=== PATIENT | female | born 1935 | race Caucasian/White ===

== ENCOUNTER 2018-03-07 17:58 | Observation (INO) ==
--- NOTE | 2018-03-07 18:31 | Emergency Department Note ---
Disposition Clinical Impression: Healthcare-associated pneumonia, Hypoxia Sepsis Qualifiers: Sepsis type: sepsis due to unspecified organism Qualified Code(s): A41.9 - Sepsis, unspecified organism Disposition: Admitted As Inpatient Condition: Good Time of Disposition: 20:29 SOB HPI - General Chief Complaint: ED Shortness of Breath/Dyspnea Stated Complaint: JONATAN Time Seen by Provider: 03/07/18 18:13 Source: patient, family, EMS Mode of arrival: EMS Limitations: no limitations Nursing Notes Reviewed: Yes Vital Signs Reviewed: Yes - History of Present Illness 82-year-old female history of hypertension and diabetes presents an emergency department via EMS for difficulty breathing. Symptoms started earlier this afternoon. She states she felt some chills and try to cover up was unable to get better. She started feeling short of breath and had increase work of breathing. She denies any cough congestion. Denies any chest pain. She was very shaky and so daughter called EMS. They place oxygen on her and she felt better. She is currently 95% on to liter nasal cannula and does not have any home oxygen supplementation. No history of lung disease. Recent hospitalization for abdominal pain. History of pneumonia. Denies history of congestive heart failure. She states it does feel worse when she lays down flat. No swelling or erythema of her legs. No history of cardiac ischemic disease. No history of known cancer, blood clot history, hemoptysis or hormone use. Patient has a known systolic murmur which she describes as a whole in his heart seen on ultrasound. Pt Subjective Complaint: shortness of breath - Related Data Home Medications Medication Instructions Recorded Confirmed Aspirin Enteric Coated [Aspirin EC] 325 mg PO DAILY 03/07/18 03/07/18 Atorvastatin Calcium [Lipitor] 20 mg PO HS 03/07/18 03/07/18 Citalopram Hydrobromide 20 mg PO DAILY 03/07/18 03/07/18 [Citalopram HBr] Cyanocobalamin (B-12) [Vitamin B12] 1,000 mcg IM QMONTH 03/07/18 03/07/18 Gabapentin [Neurontin] 600 mg PO DAILY 03/07/18 03/07/18 Glimepiride [Amaryl] 4 mg PO BID 03/07/18 03/07/18 Insulin Glargine,Hum.rec.anlog 20 units SQ 1200 03/07/18 03/07/18 [[place] Solostar] Levothyroxine Sodium [Levoxyl] 112 mcg PO QAM 03/07/18 03/07/18 Linagliptin [Tradjenta] 5 mg PO DAILY 03/07/18 03/07/18 Loratadine [Allergy Relief] 10 mg PO DAILY 03/07/18 03/07/18 Losartan Potassium [Cozaar] 100 mg PO DAILY 03/07/18 03/07/18 Metoprolol Succinate [Toprol Xl] 50 mg PO DAILY 03/07/18 03/07/18 hydroCHLOROthiazide 12.5 mg PO DAILY 03/07/18 03/07/18 [Hydrochlorothiazide] raNITIdine HCl [Ranitidine HCl] 300 mg PO DAILY 03/07/18 03/07/18 Allergies Allergy/AdvReac Type Severity Reaction Status Date / Time Penicillins AdvReac Rash Verified 03/07/18 20:30 All systems ED: reviewed and negative except as stated. Review of Systems: As Per HPI Constitutional: Reports: fever, chills. Denies: weakness ENT ED: Denies: congestion Cardiovascular: Denies: chest pain Respiratory: Reports: dyspnea. Denies: cough Gastrointestinal: Reports: diarrhea (One episode). Denies: abdominal pain, nausea, vomiting Genitourinary: Denies: urgency, dysuria Musculoskeletal: Denies: back pain Integumentary: Denies: rash, abrasion Neurological: Denies: headache Past Medical History - Past Medical History Attestation: Yes The following information was validated with the patient. Source: patient Medical history: Reports: non-contributory, arthritis, diabetes, hyperlipidemia , hypertension, TIA, other - Social History Smoking Status: Never smoker Smokeless Tobacco Status: No Alcohol use: Reports: none Drug use: Reports: none Physical Exam - General Limitations: no limitations General appearance: alert, in no apparent distress, obese - Head Head exam: atraumatic, normocephalic, normal inspection - Eye Eye exam: Present: normal appearance, PERRL, EOMI - ENT ENT exam: normal exam, normal oropharynx, mucous membranes dry - Neck Neck exam: Present: normal inspection, full ROM, trachea midline - Chest Chest inspection: Present: normal inspection, symmetric chest wall rise - Respiratory Respiratory exam: Present: normal lung sounds bilaterally, respiratory distress (Mild). Absent: wheezes - Cardiovascular Cardiovascular exam: Present: regular rate, normal rhythm, normal heart sounds, systolic murmur (Known) - Abdominal Exam Abdominal exam: Present: soft, Non-Tender, normal bowel sounds. Absent: tenderness, distention, guarding, rebound, rigidity - Extremities Exam Extremities exam: Present: normal inspection, full ROM, normal capillary refill. Absent: tenderness, pedal edema, calf tenderness - Neurological Exam Neurological exam: Present: alert, oriented X3 - Psychiatric Psychiatric exam: Present: normal affect, normal mood - Skin Skin exam: Present: warm, dry, intact, normal color. Absent: rash, cyanosis, diaphoresis Course Course Narrative: Patient presents with difficulty breathing that started earlier today. No cough but she does have a fever of 102. Denies any chest pain. History of pneumonia requiring admission. She is slightly hypoxic 95% on 2 liter nasal cannula. Patient is febrile here. On examination she has a systolic murmur that is known to the patient. It sounds musical. Her lungs or otherwise clear without any focal crackles. There is no leg edema. Sepsis workup initiated. Will check influenza swab. - Reevaluation(s) Reevaluation #1: Patient does not have a leukocytosis. Her BNP is slightly elevated at 225. Chest x-ray shows some mild pulmonary edema with possible underlying pneumonia. Given her hypoxia and recent symptoms of cough and shortness of breath will treat for pneumonia. Patient reports recent hospitalization a month ago at [facility]. Will cover for healthcare associated pneumonia with vancomycin and Zosyn. Patient will be admitted. She is in agreement with this plan. Impression is hypoxia. Healthcare associated pneumonia. Time: 20:28 - Consultations Consultation #1: Spoke with on-call hospitalist doris Castrejon to admit for HCAP and hypoxia. Will double cover with Levofloxacin. Patient is allergic to pencillin and change to Cefepime. Time: 20:54 Vital Signs O2 Sat by Pulse Oximetry 94 03/07/18 18:08 Temperature 99.6 F 03/07/18 21:21 Pulse Rate 84 03/07/18 21:21 Respiratory Rate 17 03/07/18 21:21 Blood Pressure 131/73 03/07/18 21:21 O2 Sat by Pulse Oximetry 97 03/07/18 21:21 Oxygen Delivery Oxygen Delivery Nasal Cannula Shortness of Breath/Dyspnea - [facility] Narrative Medical decision making narrative: Patient was discussed with my attending physician who agrees with ED management and final disposition. They independently evaluated the patient. Please refer to their attestation to this encounter for additional information. This note was generated by [facility] [facility] voice recognition software and as a result grammatical or spelling errors may occur using this program. - Differential Diagnosis Likely: congestive heart failure, pneumonia. Unlikely: pneumothorax - Medical Records Medical records reviewed: Yes I reviewed the patient's medical records. - Lab Data Lab results reviewed: Yes I reviewed the patient's lab results. Result diagrams: 03/07/18 18:20 03/07/18 18:20 Lab Results 03/07/18 03/07/18 03/07/18 Range/Units 18:20 18:20 18:20 WBC 9.6 (4.3-11.1) K/mcL RBC 4.52 (3.82-4.97) M/mcL Hgb 12.2 (11.5-15.4) g/dL Hct 38.0 (35.3-44.9) % MCV 84.1 (83.0-100.0) fL MCH 27.0 L (28.0-33.3) pg MCHC 32.1 (31.6-35.5) g/dL RDW 16.1 H (11.5-14.5) % Plt Count 190 (140-400) K/mcL MPV 9.0 L (9.4-12.4) fL Immature Gran % 0.6 (0-4) % Seg Neutrophils % 84.7 % Lymphocytes % 8.7 % Monocytes % 4.7 % Eosinophils % 1.1 % Basophils % 0.2 % Neutrophils # 8.1 (1.6-8.9) K/mcL Lymphocytes # 0.8 (0.6-4.6) K/mcL Monocytes # 0.5 (0.0-1.3) K/mcL Eosinophils # 0.1 (0.0-0.6) K/mcL Basophils # 0.0 (0.0-0.2) K/mcL PT 12.7 H (9.4-12.1) Seconds INR 1.1 APTT 30.6 (26.0-36.0) Seconds Sodium 136 (136-145) mEq/L Potassium 4.2 (3.5-5.1) mEq/L Chloride 99 (98-107) mEq/L Carbon Dioxide 28 (23-29) mEq/L BUN 12 (8-23) mg/dL Creatinine 0.87 (0.60-1.20) mg/dL Est GFR ( Amer) > 60 (> 60) Est GFR (Non-Af Amer) > 60 (> 60) BUN/Creatinine Ratio 14 (6-26) Glucose 201 H (70-105) mg/dL Calculated Osmolality 287 (280-300) Lactic Acid (0.5-2.2) mmol/L Calcium 9.7 (8.6-10.3) mg/dL Phosphorus 3.3 (2.7-4.5) mg/dL Magnesium 1.5 L (1.6-2.6) mg/dL Total Bilirubin 0.5 (0.3-1.0) mg/dL Direct Bilirubin 0.1 (0.0-0.2) mg/dL Indirect Bilirubin 0.4 (0.0-1.2) mg/dL AST 26 (13-39) Units/L ALT 22 (7-52) Units/L Alkaline Phosphatase 74 (34-104) Units/L Troponin I < 0.03 (< 0.04) ng/mL B-Natriuretic Peptide (Less than 100) pg/mL Serum Total Protein 7.1 (6.4-8.9) g/dL Albumin 4.0 (3.5-5.7) g/dL Globulin 3.1 (2.4-3.5) g/dL Albumin/Globulin Ratio 1.3 (1.1-2.2) Urine Color (Yellow) Urine Clarity (Clear) Urine pH (5.0-8.0) pH Units Ur Specific [place] (1.010-1.025) Urine Protein (Neg-Trace) mg/dL Urine Glucose (UA) (Normal) mg/dL Urine Ketones (Negative) mg/dL Urine Blood (Negative) Urine Nitrite (Negative) Urine Bilirubin (Negative) Urine Urobilinogen (Normal) mg/dL Ur Leukocyte Esterase (Negative) Urine Microscopic RBC (0-3) per hpf Urine Microscopic WBC (0-3) per hpf Ur Squamous Epith Cells (None-Few) per lpf Urine Bacteria (None-Few) per hpf Hyaline Casts (None-Few) per lpf Ur Culture Indicated? (NO) 03/07/18 03/07/18 03/07/18 Range/Units 18:20 18:20 19:04 WBC (4.3-11.1) K/mcL RBC (3.82-4.97) M/mcL Hgb (11.5-15.4) g/dL Hct (35.3-44.9) % MCV (83.0-100.0) fL MCH (28.0-33.3) pg MCHC (31.6-35.5) g/dL RDW (11.5-14.5) % Plt Count (140-400) K/mcL MPV (9.4-12.4) fL Immature Gran % (0-4) % Seg Neutrophils % % Lymphocytes % % Monocytes % % Eosinophils % % Basophils % % Neutrophils # (1.6-8.9) K/mcL Lymphocytes # (0.6-4.6) K/mcL Monocytes # (0.0-1.3) K/mcL Eosinophils # (0.0-0.6) K/mcL Basophils # (0.0-0.2) K/mcL PT (9.4-12.1) Seconds INR APTT (26.0-36.0) Seconds Sodium (136-145) mEq/L Potassium (3.5-5.1) mEq/L Chloride (98-107) mEq/L Carbon Dioxide (23-29) mEq/L BUN (8-23) mg/dL Creatinine (0.60-1.20) mg/dL Est GFR ( Amer) (> 60) Est GFR (Non-Af Amer) (> 60) BUN/Creatinine Ratio (6-26) Glucose (70-105) mg/dL Calculated Osmolality (280-300) Lactic Acid 1.8 (0.5-2.2) mmol/L Calcium (8.6-10.3) mg/dL Phosphorus (2.7-4.5) mg/dL Magnesium (1.6-2.6) mg/dL Total Bilirubin (0.3-1.0) mg/dL Direct Bilirubin (0.0-0.2) mg/dL Indirect Bilirubin (0.0-1.2) mg/dL AST (13-39) Units/L ALT (7-52) Units/L Alkaline Phosphatase (34-104) Units/L Troponin I (< 0.04) ng/mL B-Natriuretic Peptide 225 H (Less than 100) pg/mL Serum Total Protein (6.4-8.9) g/dL Albumin (3.5-5.7) g/dL Globulin (2.4-3.5) g/dL Albumin/Globulin Ratio (1.1-2.2) Urine Color Yellow (Yellow) Urine Clarity Clear (Clear) Urine pH 6.0 (5.0-8.0) pH Units Ur Specific [place] 1.020 (1.010-1.025) Urine Protein Trace (Neg-Trace) mg/dL Urine Glucose (UA) Normal (Normal) mg/dL Urine Ketones Negative (Negative) mg/dL Urine Blood Moderate H (Negative) Urine Nitrite Negative (Negative) Urine Bilirubin Negative (Negative) Urine Urobilinogen Normal (Normal) mg/dL Ur Leukocyte Esterase Small H (Negative) Urine Microscopic RBC 3-5 H (0-3) per hpf Urine Microscopic WBC 15-30 H (0-3) per hpf Ur Squamous Epith Cells Moderate H (None-Few) per lpf Urine Bacteria None Seen (None-Few) per hpf Hyaline Casts None Seen (None-Few) per lpf Ur Culture Indicated? YES A (NO) - Radiology Data Radiology results reviewed: Yes I reviewed the patient's radiology results. Chest X-Ray 03/07/18 18:27 IMPRESSION: Small bibasilar lung opacities are nonspecific and may represent atelectasis with pneumonia not excluded. Mild pulmonary edema. D/ / 03/07/2018 19:17:45 Miguel Park MD / capri Interpreting Provider: Miguel Park MD - EKG Data EKG attestation: Yes I reviewed and interpreted this EKG. EKG results narrative: EKG performed 1811 normal sinus rhythm 93 beats per minute, normal axis, good R wave progression, no ST elevation or depression, intervals within normal limits. No old EKG available for comparison at this time. No acute ischemic changes. Attestation Statement - Attestation Attestation: I, Juwan Hunter, examined this patient and my medical decision-making was reviewed with the NAIL FEEDER/PA/Advanced Practice Nurse/Resident Physician. I agree with the documented findings, disposition and treatment plan as described except to the extent set forth below. 82-year-old female presents with concerns of weakness, fatigue and cough and shortness of breath. Patient states symptoms have been increasing over the past 2-3 days. She was febrile on the initial evaluation. Chest x-ray showed bibasilar opacities which favored atelectasis but pneumonia cannot be excluded. Patient denies syncopal event. She is tolerating by mouth intake well. Patient denies chest pain, diaphoresis. She will be admitted to the hospital and treated with HCAP as she was admitted to the hospital one month ago.
[2018-03-07 18:39] LABS: Basophils % 0.2 %; Eosinophils # 0.1 K/mcL (0.0-0.6); Eosinophils % 1.1 %; Hemoglobin 12.2 g/dL (11.5-15.4); Immature Granulocytes % 0.6 % (0-4); Lymphocytes # 0.8 K/mcL (0.6-4.6); Lymphocytes % 8.7 %; Mean Corpuscular HGB Conc 32.1 g/dL (31.6-35.5); Mean Corpuscular Volume 84.1 fL (83.0-100.0); Monocytes # 0.5 K/mcL (0.0-1.3); Monocytes % 4.7 %; Neutrophils # 8.1 K/mcL (1.6-8.9); Platelet Count 190 K/mcL (140-400); Red Blood Count 4.52 M/mcL (3.82-4.97); Red Cell Distribution Width 16.1 % (11.5-14.5); Segmented Neutrophils % 84.7 %
[2018-03-07 18:44] LABS: INR 1.1; Prothrombin Time 12.7 Seconds (9.4-12.1)
[2018-03-07 18:47] LABS: Activated Partial Thrombo Time 30.6 Seconds (26.0-36.0)
[2018-03-07 18:59] LABS: Troponin I < 0.03 ng/mL (< 0.04)
[2018-03-07 19:00] LABS: Alanine Aminotransferase 22 Units/L (7-52); Albumin/Globulin Ratio 1.3 (1.1-2.2); Alkaline Phosphatase 74 Units/L (34-104); Aspartate Amino Transferase 26 Units/L (13-39); BUN/Creatinine Ratio 14 (6-26); Bilirubin,Direct 0.1 mg/dL (0.0-0.2); Bilirubin,Indirect 0.4 mg/dL (0.0-1.2); Bilirubin,Total 0.5 mg/dL (0.3-1.0); Blood Urea Nitrogen 12 mg/dL (8-23); Calcium 9.7 mg/dL (8.6-10.3); Carbon Dioxide 28 mEq/L (23-29); Chloride 99 mEq/L (98-107); Globulin 3.1 g/dL (2.4-3.5); Glucose 201 mg/dL (70-105); Magnesium 1.5 mg/dL (1.6-2.6); Osmolality,Calculated 287 (280-300); Phosphorous 3.3 mg/dL (2.7-4.5); Potassium 4.2 mEq/L (3.5-5.1); Sodium 136 mEq/L (136-145); Total Protein 7.1 g/dL (6.4-8.9); eGFR For Non-African Americans > 60 (> 60)
[2018-03-07 19:23] LABS: Bilirubin,Urine Negative (Negative); Blood,Urine Moderate (Negative); Clarity,Urine Clear (Clear); Color,Urine Yellow (Yellow); Glucose,Urine (UA) Normal (Normal); Ketones,Urine Negative (Negative); Leukocyte Esterase,Urine Small (Negative); Nitrite,Urine Negative (Negative); Protein,Urine Trace mg/dL (Neg-Trace); Urobilinogen,Urine Normal (Normal)
[2018-03-07 19:28] LABS: Bacteria,Urine None Seen per hpf (None-Few); Hyaline Casts,Urine None Seen per lpf (None-Few); Squamous Epithelial Cell,Urine Moderate per lpf (None-Few); WBC,Urine 15-30 per hpf (0-3)
[2018-03-07] MEDS ORDERED: Vancomycin (wt based) 1,000 MG VIAL IVPB ONE (20:04)
[2018-03-07] MEDS ORDERED: Cefepime HCl 2,000 MG in 0.9 % Sodium Chloride Mini Bag 100 ML IVPB STA (20:50)
[2018-03-07] MEDS ORDERED: Azithromycin 500 MG in D5% in Water 250 ML IVPB STA (20:52)
[2018-03-08] MEDS ORDERED: Naloxone 0.4 MG/ML INJ IVP PRN (01:33)
[2018-03-08] MEDS ORDERED: D5% in Water 1,000 ML IVC PRN (01:35)
[2018-03-08] MEDS ORDERED: Dextrose Gel 15 GM/37.5 ML TUBE PO PRN ×2 (01:35)
[2018-03-08] MEDS ORDERED: *HR* Dextrose 50 % in Water (Syg) 50 ML SYRINGE IVP PRN (01:35)
--- NOTE | 2018-03-08 03:00 | Internal Med History&Physical ---
Date of Encounter: 03/08/18 Time of Encounter: 00:40 Internal Medicine - H&P: HPI Chief complaint: HCAP Admitted From: Emergency Dept Plans for Post Hospital Care: Home History of present illness: Ms. Doran is a 82 year old female Patient presented to the emergency room with several day history of progressively worsening shortness of breath. The day of her admission she states that she could not get warm and had chills. She tried going to bed and covering herself up but this did not help. She denies productive cough but has had a cough during this time. With her increased shortness of breath she became worried and called EMS who then transported her to the hospital. She has a recent history of being admitted to the hospital at [place] for abdominal pain, as well as being tested for obstructive sleep apnea 3 weeks ago. In the emergency room CBC was within normal limits, she had an elevated temperature of 102.4, pulse of 92 respiratory rate of 24, meeting sepsis criteria. BMP was within normal limits magnesium slightly low at 1.5 and troponins were undetectable. BNP was 225, unclear what patient's baseline is as she does not claim to have a history of congestive heart failure. Lactate was not elevated at 1.8. Chest x-ray showed small bibasilar opacities nonspecific with pneumonia not excluded. There is also mild pulmonary edema. UA showed moderate blood and small leukocyte esterase. She was noted to have a loud systolic murmur, which she states she has had for many years. Blood and urine cultures were drawn in the emergency room, she was started on azithromycin , cefepime and vancomycin and admitted to the hospital for further management of her healthcare associated pneumonia. Upon my assessment patient is resting comfortably in hospital bed. She denies nausea, vomiting, diarrhea and constipation. She does not have chest pain or shortness of breath at this time. She is wearing oxygen and says that it helps her. Past Med Surg Social Fam HX - Past Medical History Medical history: non-contributory, arthritis, diabetes, hyperlipidemia, hypertension, TIA, other Additional medical history: Type II Diabetic. heart murmur - Social History Smoking Status: Never smoker Smokeless Tobacco Status: No Alcohol use: none Drug use: none - Family History Mother Hx Family Cardiac Disorders: Yes (CHF) Hx Family Endocrine Disorder: Yes (DM) Father Hx Family Cardiac Disorders: Yes (ANGINA) Internal Medicine - H&P: Meds Aspirin Enteric Coated [Aspirin EC] 325 mg PO DAILY 03/07/18 [History] Atorvastatin Calcium [Lipitor] 20 mg PO HS 03/07/18 [History] Citalopram Hydrobromide [Citalopram HBr] 20 mg PO DAILY 03/07/18 [History] Cyanocobalamin (B-12) [Vitamin B12] 1,000 mcg IM QMONTH 03/07/18 [History] Gabapentin [Neurontin] 600 mg PO DAILY 03/07/18 [History] Glimepiride [Amaryl] 4 mg PO BID 03/07/18 [History] Insulin Glargine,Hum.rec.anlog [[place] Solostar] 20 units SQ 1200 03/07/18 [ History] Levothyroxine Sodium [Levoxyl] 112 mcg PO QAM 03/07/18 [History] Linagliptin [Tradjenta] 5 mg PO DAILY 03/07/18 [History] Loratadine [Allergy Relief] 10 mg PO DAILY 03/07/18 [History] Losartan Potassium [Cozaar] 100 mg PO DAILY 03/07/18 [History] Metoprolol Succinate [Toprol Xl] 50 mg PO DAILY 03/07/18 [History] hydroCHLOROthiazide [Hydrochlorothiazide] 12.5 mg PO DAILY 03/07/18 [History] raNITIdine HCl [Ranitidine HCl] 300 mg PO DAILY 03/07/18 [History] 3 Allergy/AdvReac Type Severity Reaction Status Date / Time Penicillins AdvReac Rash Verified 03/07/18 20:30 All Systems PM: A 10-system review of systems was performed and is negative for pertinent findings except as documented above in the HPI. - Constitutional Vitals: Temp Pulse Resp BP Pulse Ox 98.7 F 74 16 118/70 95 03/07/18 23:24 03/07/18 23:24 03/07/18 23:24 03/07/18 23:24 03/07/18 23:24 General appearance: Present: cooperative, A&O X 3, pleasant, no acute distress, answers questions appropriately Exam: As above - Head Head exam: Present: normal inspection - Eye Eye exam: Present: EOMI, normal appearance - Neck Neck exam general surgery: Present: full ROM - Respiratory Respiratory exam: Present: rales. Absent: chest wall tenderness, decreased breath sounds, respiratory distress, wheezes - Cardiovascular Cardiovascular exam: Present: RRR, systolic murmur. Absent: diastolic murmur Additional comments: Loud +3 systolic murmur - GI/Abdominal GI/Abdominal exam: Present: normal bowel sounds, soft. Absent: tenderness - Extremities Exam Extremities exam: Present: warm, radial pulses palpable and symmetrical. Absent : calf tenderness, pedal edema, tenderness - Neurological Exam Neurological exam: Present: no focal deficits, strengths equal and symetr throughout. Absent: motor sensory deficit, facial droop, speech deficit - Skin Skin exam: Present: dry, normal color, warm. Absent: rash Internal Med - H&P Results - Labs CBC & Chem 7: 03/08/18 03:44 03/08/18 03:44 - Assessment and plan (1) Healthcare-associated pneumonia Current Visit: Yes Status: Acute Assessment and plan: Due to patient's recent hospitalization, and evidenced by patient's chest x-ray , patient was started on antibiotics in the emergency room. Blood and urine cultures were drawn as well. Patient initially met sepsis criteria for elevated temperature, respiratory rate and pulse. Of note, patient has allergy to penicillins. Continue antibiotics Follow-up blood cultures when available Continue to monitor vitals (2) Sepsis Current Visit: Yes Status: Acute Assessment and plan: Now resolved, continue to monitor Treatment as above Qualifiers: Sepsis type: sepsis due to unspecified organism Qualified Code(s): A41.9 - Sepsis, unspecified organism (3) Systolic murmur Current Visit: Yes Status: Acute Assessment and plan: Known to the patient, no cardiology documentation in her charts thus far. Echocardiogram in the morning (4) Elevated brain natriuretic peptide (BNP) level Current Visit: Yes Status: Acute Assessment and plan: Unclear patient has history of congestive heart failure, does have a BNP of 225 on initial lab work. Echocardiogram in the morning Consider starting Lasix if worsening shortness of breath with treatment for pneumonia. (5) Diabetes Current Visit: Yes Status: Acute Assessment and plan: Patient on insulin at home, as well as glimepiride. Hold home diabetes medications Monitor sugars with meals and at night Insulin sliding scale as needed Qualifiers: Diabetes mellitus type: type 2 Diabetes mellitus half-way insulin use: with ad terminal makeup operator use Diabetes mellitus complication status: without complication Qualified Code(s): E11.9 - Type 2 diabetes mellitus without complications; Z79.4 - correction (current) use of insulin (6) Hypothyroidism Current Visit: Yes Status: Acute Assessment and plan: Continue home meds Qualifiers: Hypothyroidism type: unspecified Qualified Code(s): E03.9 - Hypothyroidism , unspecified (7) DVT prophylaxis Current Visit: Yes Status: Acute Assessment and plan: Heparin subcutaneous - Time Spent With Patient Total time spent is greater than 50% in coordination of care (as documented) at patient's floor/unit and/or counseling patient: Greater than 35 minutes
[2018-03-08 04:39] LABS: Hematocrit 34.4 % (35.3-44.9); Hemoglobin 10.8 g/dL (11.5-15.4); Mean Corpuscular HGB Conc 31.4 g/dL (31.6-35.5); Mean Corpuscular Hemoglobin 26.6 pg (28.0-33.3); Mean Corpuscular Volume 84.7 fL (83.0-100.0); Mean Platelet Volume 9.5 fL (9.4-12.4); Platelet Count 180 K/mcL (140-400); Red Blood Count 4.06 M/mcL (3.82-4.97); Red Cell Distribution Width 15.9 % (11.5-14.5)
[2018-03-08 04:58] LABS: BUN/Creatinine Ratio 15 (6-26); Blood Urea Nitrogen 12 mg/dL (8-23); Calcium 9.3 mg/dL (8.6-10.3); Carbon Dioxide 28 mEq/L (23-29); Chloride 101 mEq/L (98-107); Glucose 218 mg/dL (70-105); Osmolality,Calculated 288 (280-300); Potassium 3.5 mEq/L (3.5-5.1); Sodium 136 mEq/L (136-145); eGFR For Non-African Americans > 60 (> 60)
[2018-03-08] MEDS: Insulin LISPRO 300 UNITS/3 ML VIAL SQ SCH ×3 (07:55→17:07)
[2018-03-08] MEDS: Magnesium Oxide 400 MG TABLET PO SCH (08:59)
[2018-03-08] MEDS: Cefepime HCl 2,000 MG in Water for inj. (sterile) 20 ML 20 ML IVP SCH ×2 (09:00→21:48)
[2018-03-08] MEDS ORDERED: Ondansetron 4 MG/2 ML VIAL IVP PRN (10:08)
[2018-03-08] MEDS: Acetaminophen 325 MG TABLET PO PRN ×2 (10:30→21:27)
[2018-03-08] MEDS ORDERED: Azithromycin 500 MG in D5% in Water 250 ML IVPB SCH (12:00)
[2018-03-08] MEDS: *HR* Heparin 5,000 UNIT/ML VIAL SQ SCH (17:07)
[2018-03-08] MEDS ORDERED: Piperacillin/Tazobactam 3.375 GM in 0.9 % Sodium Chloride Mini Bag 100 ML IVPB ONE (20:04)
[2018-03-08] MEDS ORDERED: Insulin DETEMIR 100 UNIT/ML X5UNITS SQ SCH (21:00)
[2018-03-08] MEDS ORDERED: Insulin LISPRO 300 UNITS/3 ML VIAL SQ SCH (21:00)
[2018-03-09] MEDS: *HR* Heparin 5,000 UNIT/ML VIAL SQ SCH (05:27)
[2018-03-09 05:43] LABS: Hematocrit 35.4 % (35.3-44.9); Hemoglobin 11.1 g/dL (11.5-15.4); Mean Corpuscular HGB Conc 31.4 g/dL (31.6-35.5); Mean Corpuscular Hemoglobin 26.7 pg (28.0-33.3); Mean Corpuscular Volume 85.1 fL (83.0-100.0); Mean Platelet Volume 9.7 fL (9.4-12.4); Platelet Count 195 K/mcL (140-400); Red Blood Count 4.16 M/mcL (3.82-4.97); Red Cell Distribution Width 15.9 % (11.5-14.5)
[2018-03-09 06:01] LABS: BUN/Creatinine Ratio 13 (6-26); Blood Urea Nitrogen 9 mg/dL (8-23); Calcium 9.1 mg/dL (8.6-10.3); Carbon Dioxide 27 mEq/L (23-29); Chloride 102 mEq/L (98-107); Glucose 121 mg/dL (70-105); Magnesium 1.8 mg/dL (1.6-2.6); Osmolality,Calculated 288 (280-300); Potassium 3.8 mEq/L (3.5-5.1); Sodium 139 mEq/L (136-145); eGFR For Non-African Americans > 60 (> 60)
[2018-03-09] MEDS ORDERED: Cyanocobalamin (B-12) 1,000 MCG/ML VIAL IM SCH (08:00)
[2018-03-09] MEDS: Insulin LISPRO 300 UNITS/3 ML VIAL SQ SCH ×2 (08:20→12:28)
[2018-03-09] MEDS ORDERED: Famotidine 20 MG TABLET PO SCH (08:30)
[2018-03-09] MEDS: Cefepime HCl 2,000 MG in Water for inj. (sterile) 20 ML 20 ML IVP SCH (08:51)
[2018-03-09] MEDS: Magnesium Oxide 400 MG TABLET PO SCH (08:54)
[2018-03-09] MEDS ORDERED: Metoprolol XL (24 HR) Succ 50 MG TAB.ER.24H PO SCH (09:00)
[2018-03-09] MEDS ORDERED: hydroCHLOROthiazide 25 MG TABLET PO SCH (09:00)
[2018-03-09] MEDS ORDERED: Loratadine 10 MG TABLET PO SCH (09:00)
[2018-03-09] MEDS ORDERED: Aspirin Enteric Coated 325 MG Tablet PO SCH (09:00)
[2018-03-09] MEDS ORDERED: Gabapentin 300 MG CAPSULE PO SCH (09:00)
[2018-03-09 11:21] VITALS: BP 105/65
--- NOTE | 2018-03-09 12:37 | Electrocardiograph Report ---
[place] [id number] Test Date: 2018-03-07 Pat Name: Judith Doran Department: [id number] Room: 3B22 Gender: F Hydrologic Engineer: : [id number] Requested By: Boris Costa Order Number: [id number] Reading MD: Diana Adrian Measurements Intervals [place] Rate: 93 P: 38 NH: 142 QRS: 78 QRSD: 92 T: 46 QT: 362 QTc: 451 Interpretive Statements Normal sinus rhythm Electronically Signed On 03-09-2018 12:36:00 EDT by Diana Adrian
--- NOTE | 2018-03-09 14:51 | Discharge Summary ---
- NOTES TO OUTPATIENT PROVIDER Notes to Outpatient Provider: f/u with PCP within a week. Orders not resulted at time of discharge: Pending orders 03/10/18 20:00 Vancomycin,Trough Timed Date of Encounter: 03/09/18 Time of Encounter: 14:49 - Discharge Diagnosis (1) Healthcare-associated pneumonia Priority: Primary Status: Acute Comments: unknown organism (2) Diabetes Priority: Secondary Status: Chronic Qualifiers: Diabetes mellitus type: type 2 Diabetes mellitus detention insulin use: with detention use Diabetes mellitus complication status: without complication Qualified Code(s): E11.9 - Type 2 diabetes mellitus without complications; Z79.4 - FPC (current) use of insulin (3) Hypothyroidism Priority: Secondary Status: Chronic Qualifiers: Hypothyroidism type: unspecified Qualified Code(s): E03.9 - Hypothyroidism , unspecified (4) Elevated brain natriuretic peptide (BNP) level Priority: Primary Status: Acute (5) DVT prophylaxis Priority: Primary Status: Acute Hospital course: Ms. Doran is a 82 year old female presented to the emergency room with several day history of progressively worsening shortness of breath. The day of her admission she states that she could not get warm and had chills. She tried going to bed and covering herself up but this did not help. She denies productive cough but has had a cough during this time. With her increased shortness of breath she became worried and called EMS who then transported her to the hospital. She has a recent history of being admitted to the hospital at [facility] for abdominal pain, as well as being tested for obstructive sleep apnea 3 weeks ago. Temperature upon admission was 102.4, chest x-ray showed a possible pneumonia. Patient was treated as healthcare associated pneumonia with IV cefepime, vancomycin, and azithromycin. Blood culture, sputum culture, and urine culture were obtained. Patient symptoms rapidly improved after the treatment. On the discharge today, patient is afebrile, she denies any shortness of breath, cough, chills, or night sweats. Blood pressure and a urine culture has no growth until today. Patient will be discharged home today. She was instructed to continue to take antibiotics for 7 days. Patient will follow-up with PCP within a week. Discharge discussed with: patient, family Time spent discussing smoking cessation with patient: more than 10 minutes - Time Spent with Patient Total time spent providing and/or coordinating discharge services: Greater than 30 minutes - Discharge Medications Prescriptions: Levofloxacin [Levaquin] 750 mg PO DAILY #7 tablet Home Medications: Aspirin Enteric Coated [Aspirin EC] 325 mg PO DAILY 03/07/18 [History] Atorvastatin Calcium [Lipitor] 20 mg PO HS 03/07/18 [History] Citalopram Hydrobromide [Citalopram HBr] 20 mg PO DAILY 03/07/18 [History] Cyanocobalamin (B-12) [Vitamin B12] 1,000 mcg IM QMONTH 03/07/18 [History] Gabapentin [Neurontin] 600 mg PO DAILY 03/07/18 [History] Glimepiride [Amaryl] 4 mg PO BID 03/07/18 [History] Insulin Glargine,Hum.rec.anlog [Toujeo Solostar] 20 units SQ 1200 03/07/18 [ History] Levothyroxine Sodium [Levoxyl] 112 mcg PO QAM 03/07/18 [History] Linagliptin [Tradjenta] 5 mg PO DAILY 03/07/18 [History] Loratadine [Allergy Relief] 10 mg PO DAILY 03/07/18 [History] Losartan Potassium [Cozaar] 100 mg PO DAILY 03/07/18 [History] Metoprolol Succinate [Toprol Xl] 50 mg PO DAILY 03/07/18 [History] hydroCHLOROthiazide [Hydrochlorothiazide] 12.5 mg PO DAILY 03/07/18 [History] raNITIdine HCl [Ranitidine HCl] 300 mg PO DAILY 03/07/18 [History] Levofloxacin [Levaquin] 750 mg PO DAILY #7 tablet 03/09/18 [Rx] Allergies/Adverse Reactions: 3 Allergy/AdvReac Type Severity Reaction Status Date / Time Penicillins AdvReac Rash Verified 03/07/18 20:30 Date of admission: 03/07/18 20:53 Primary care physician: Alberto Paiz Anticipated date of discharge: 03/09/18 - Constitutional Vitals: Temp Pulse Resp BP Pulse Ox 97.7 F 68 15 105/65 93 03/09/18 11:18 03/09/18 11:18 03/09/18 11:18 03/09/18 11:18 03/09/18 11:18 General appearance: Present: cooperative, A&O X 3, pleasant, no acute distress, answers questions appropriately Exam: PHYSICAL EXAMINATION: GENERAL APPEARANCE: The patient is alert, oriented and in no acute distress. HEENT: Head is normocephalic. The sinuses are nontender. Pupils are equal and reactive. The nares are patent. Oropharynx clear without lesions. NECK: Supple without lymphadenopathy. HEART: Regular rate and rhythm. LUNGS: No crackles or wheezes are heard. ABDOMEN: Soft, nontender, nondistended with good bowel sounds heard. Inguinal area is normal. EXTREMITIES: Without cyanosis, clubbing or edema. NEUROLOGICAL: Gross nonfocal. SKIN: Warm and dry without any rash. - Patient Status Disposition: Home, Self-Care Condition: Good Functional capacity at discharge: independent ambulation Overall status at discharge: patient is progressing back to baseline - Discharge Instructions Follow Up With: Alberto Paiz [Other] - Diet and Activity Activity: increase activity as tolerated Diet: diabetic diet
[2018-03-09] MEDS ORDERED: Aminoglycoside Consult 1 EACH MC ONE (16:27)
[2018-03-10] MEDS ORDERED: Famotidine 20 MG TABLET PO SCH (07:30)
[2018-03-24] MEDS ORDERED: Cyanocobalamin (B-12) 1,000 MCG/ML VIAL IM SCH (09:00)
== END 2018-03-09 16:28 | disposition home or self-care (01) ==
LOC: 3BNU 17:58 → EMEROOARM 17:58 → 3BNU 21:27
PROVIDERS: ADMIT Family Medicine; ATTEND Family Medicine